=== PATIENT | female | born 1950 | race Caucasian/White ===

== ENCOUNTER 2023-07-18 08:09 | Emergency (ER) | payer MEDICARE, OTHER, SELFPAY ==
[2023-07-18 08:21] VITALS: BP 152/83; PULSE 71; RESP 18; TEMP 36.8; O2SAT 96; BMI 21.7
--- NOTE | 2023-07-18 08:30 | ED_ITS ---
HPI - Eye Problem General: Chief complaint: Eye Problems Stated complaint: foreign object in left eye Time Seen by Provider: 07/18/23 08:26 Source: patient Mode of arrival: ambulatory Limitations: no limitations History of Present Illness: Patient is here because she has foreign body sensation and irritation in her left eye that began approximately 5 PM yesterday. She states she was unaware that she got anything in her eye. She did spend the afternoon canoeing. She does not wear contact lenses. She does wear glasses for reading on occasion but otherwise has no history of significant eye disease such as glaucoma, iritis etc. No trauma involved. chief complaint: eye pain and foreign body Duration: constant Location: left eye Associated symptoms: Reports no associated symptoms; Denies fever(s) or headache(s) Review of Systems Const: Denies: fever(s) or chills Eyes: Reports: blurry vision and eye discomfort; Denies: eye discharge, eye redness or seeing flashes ENMT: Denies: throat pain or nasal congestion Skin/Breast: Denies: rash or pruritus Neuro: Denies: headache(s), numbness in extremities, weakness in extremities or vertigo Physical Exam Narrative: EXAM NARRATIVE: Patient's alert makes good eye contact speech is fluent voice. Const: COMMON NORMALS: no acute distress, average body habitus, patient oriented x3 and alert GENERAL APPEARANCE: cooperative and comfortable HENMT: COMMON NORMALS: normocephalic, atraumatic, Normal nasal mucous membranes and turbinates present, moist oral mucous membranes and oropharynx normal HEAD & SCALP: normocephalic and atraumatic NOSE: Normal nasal mucous membranes and turbinates present Eye: COMMON NORMALS: Equal, round and reactive pupils present and EOMs intact bilaterally VISUAL ACUITY: Yes visual acuity right eye (20/40 without correction) and Yes visual acuity left eye (20/40 without correction) PUPIL: Yes Equal, round and reactive pupils present OTHER: Patient was examined carefully. Lids were everted without any evidence of obvious foreign body. Slight injection of the conjunctiva but not any significant redness. Pupils equal and reactive. Fluorescein stain was used and visualized under magnification without any obvious corneal abrasion or fluorescein uptake. There was no tenderness or erythema around the orbit total structures. Neck/C-Spine: COMMON NORMALS: full ROM and no lymphadenopathy Resp: COMMON NORMALS: normal respiratory effort EFFORT & INSPECTION: Yes able to speak in complete sentences Extremity: COMMON NORMALS: normal to inspection and full ROM Neuro: COMMON NORMALS: patient oriented x3, moves all extremities and no focal motor deficits SENSORIUM/ORIENTATION: Yes alert CRANIAL NERVES: Yes CN normal except as noted Psych: COMMON NORMALS: mental status grossly normal Course Reevaluation(s): Reevaluation #1: Irrigation with Patrick lens completed. Will reevaluate the patient in a few minutes to determine if symptoms are resolved. Time: 09:32 Reevaluation #2: Irrigation completed. Patient states that she feels normal without any eye discomfort at all. We have given her long enough duration of time for any topical anesthetic to wear off so that we can get a appropriate evaluation of any discomfort. No evidence of corneal abrasion or any other concerning eye issues at this time. Likely a very small foreign body that was not easily visible to the lid inversion under magnification but irrigation medically has resolved her symptoms so she is suitable for discharge with return precautions discussed. Time: 09:56 Vital Signs: Vital signs: Vital Signs Temperature 98.2 F 07/18/23 08:21 Pulse Rate 71 07/18/23 08:21 Respiratory Rate 18 07/18/23 08:21 Blood Pressure 152/83 07/18/23 08:21 Pulse Oximetry 96 07/18/23 08:21 Oxygen Delivery Me thod Room Air 07/18/23 08:21 MDM - Eye Problem Medical Decision Making Patient visiting here who spent the day on the [facility]. She complained of a sensation of something in her eye onset yesterday evening which has persisted this morning. No history of contact lens use obvious foreign body risk other than being out of doors. Initial examination revealed normal visual acuity no evidence of pupillary dysfunction extraocular motion dysfunction etc. No evidence of obvious trauma. Fluorescein examination revealed no evidence of uptake. The patient was then irrigated with 1000 cc of normal saline using a Patrick lens. Symptoms completely resolved. Unlikely any penetrating foreign body negative [place] sign etc. likely a small retained foreign body without any evidence of other ocular damage nor history of serious ocular disease. Suitable for discharge with return precautions. Patient voiced understanding and is appreciative of care. No radiology studies performed this visit Discharge Plan Discharge Patient Disposition: Home Clinical Impression: Acute foreign body of left conjunctiva Qualifiers: Encounter type: initial encounter Qualified Code(s): T15.12XA - Foreign body in conjunctival sac, left eye, initial encounter Condition: Stable Discharge Orders: Discharge ED (Routine); Ordered 07/18/23 Ordered By: Bertrand Seals Discharge Diet: Usual diet Discharge Activity: Increase activity as tolerated Patient Instructions: Opioid Safety, Pain Management Activity Restrictions/Additional Instructions: As we discussed there is no evidence of a serious injury to your left eye this morning and you resolved your symptoms after irrigation in the emergency department. If you develop recurrence of your symptoms, change in your vision or any other concerns while in this area you are welcome to return to this emergency department or at the a emergency department in your home location. Coding Level of Care Code ED Soft Sugar Cutter for Patricia Belle
[2023-07-18] MEDS: fluorescein 1 mg Strip EYE-LEFT (08:48)
[2023-07-18] MEDS: tetracaine 0.5% Op Soln 4 mL Btl 1 DROP EYE-LEFT (08:48)
[2023-07-18] MEDS: sodium chloride 0.9% 1,000 ML 999 ML IV (08:48)
--- NOTE | 2023-07-18 08:56 | PC.NURSE ---
Applied The Patrick Med-Flow Lens to pt's left eye, connected 1L NS fluids at slowed rate. pt states irrigation felt comfortable.
[2023-07-18] MEDS: eye irrigation 30 mL Btl EYE-LEFT (09:25)
[2023-07-18 10:05] VITALS: PULSE 76; RESP 18; O2SAT 100
== END 2023-07-18 10:05 | disposition home or self-care (01) ==
PROVIDERS: Emergency Provider Emergency Medicine
DX: T15.12XA Foreign body in conjunctival sac, left eye, initial encounter (principal); W44.9XXA Unspecified foreign body entering into or through a natural orifice, initial encounter
CPT/HCPCS: 99283; J7030